=== PATIENT | female | born 1985 | race Caucasian/White ===

== ENCOUNTER 2016-09-20 13:36 | Emergency (ER) | payer OTHER ==
[~2016-09-20] VITALS: Ht 165.1 cm; Wt 90.7 kg
[~2016-09-20 13:36] MED LIST: ALBUTEROL2.5 MG/0.5; AMOXICILLIN500 M2 PO; MEDROL DOSEPAK4 MG PO; MOTRIN800 MG PO; NORCO 325 MG-51 TAB PO; PERCOCET 325 MG1 TA5 PO; SINGULAIR10 MG PO; SYMBICORT1 AE1 INH; XANAX0.5 MG PO; ZYRTEC10 MG PO
[2016-09-20] MEDS ORDERED: VALTREX1 GM PO (13:47)
[2016-09-20] MEDS ORDERED: HYDROCODONE BIT1 T11 PO (13:47)
[2016-09-20] MEDS ORDERED: PREDNISONE10 MG PO (13:47)
== END 2016-09-20 13:54 | disposition home or self-care (01) ==
LOC: ED 13:36
DX: B02.9 Zoster without complications (principal); R03.0 Elevated blood-pressure reading, without diagnosis of hypertension; Z98.890 Other specified postprocedural states; Z79.899 Other long term (current) drug therapy; Z88.6 Allergy status to analgesic agent

== ENCOUNTER 2018-07-02 05:31 | Emergency (ER) | payer OTHER ==
[~2018-07-02] VITALS: Ht 165.1 cm; Wt 86.2 kg
[~2018-07-02 05:31] MED LIST changes: +HYDROCODONE BIT1 T11 PO; +PREDNISONE10 MG PO; +VALTREX1 GM PO
[2018-07-02] MEDS ORDERED: ZOLOFT50 MG PO (05:44)
[2018-07-02] MEDS ORDERED: ZYRTEC10 MG PO (05:45)
[2018-07-02] MEDS ORDERED: SYNTHROID,LEV112 MCG PO (05:45)
[2018-07-02] MEDS ORDERED: ATENOLOL25 MG PO (05:45)
[2018-07-02] MEDS ORDERED: VITAMIN D-32000 UNI1 PO (05:46)
[2018-07-02] MEDS ORDERED: LIOTHYRONINE SO5 MCG PO (05:46)
[2018-07-02 06:32] LABS: BASO % 0.2 % (0.0-1.0); EOS % 0.6 % (1.0-4.0); HEMATOCRIT 37.3 % (37.0-47.0); LYMPH # 0.6 10*3/uL (1.3-4.4); LYMPH % 9.3 % (27.0-41.0); MEAN CELL VOLUME 87.1 fl (81.0-99.0); MEAN CORPUSCULAR HGB 30.4 pg (27.0-31.0); MEAN CORPUSCULAR HGB CONC 34.9 g/dl (33.0-37.0); MEAN PLATELET VOLUME 10.3 fl (9.6-12.3); MONO # 0.4 10*3/uL (0.1-1.0); MONO % 6.3 % (3.0-9.0); NEUT # 5.5 10*3/uL (2.3-7.9); NEUT % 83.1 % (47.0-73.0); PLATELET COUNT AUTOMATED 216 10*3/uL (130-400); RED BLOOD COUNT 4.28 10*6/uL (4.10-5.10); RED CELL DISTRI WIDTH 12.2 % (0-14.5); WHITE BLOOD COUNT 6.6 10*3/uL (4.8-10.8)
[2018-07-02 06:46] LABS: BUN 10 mg/dl (7-24); CHLORIDE 103 mmol/L (98-107); CREATININE 0.76 mg/dL (0.55-1.02); POTASSIUM 3.3 mmol/L (3.5-5.1); SODIUM 134 mmol/L (136-145)
[2018-07-02] MEDS ORDERED: ONDANSETRON4 MG SL (06:58)
== END 2018-07-02 07:01 | disposition home or self-care (01) ==
LOC: ED 05:31
PROVIDERS: Emergency Medicine
DX: K52.9 Noninfective gastroenteritis and colitis, unspecified (principal); Z88.8 Allergy status to other drugs, medicaments and biological substances; Z79.899 Other long term (current) drug therapy

== ENCOUNTER 2019-08-27 21:56 | Emergency (ER) | payer OTHER ==
[~2019-08-27] VITALS: Ht 165.1 cm; Wt 88.5 kg
[~2019-08-27 21:56] MED LIST changes: +ATENOLOL25 MG PO; +LIOTHYRONINE SO5 MCG PO; +ONDANSETRON4 MG SL; +SYNTHROID,LEV112 MCG PO; +VITAMIN D-32000 UNI1 PO; +ZOLOFT50 MG PO
== END 2019-08-28 00:10 | disposition home or self-care (01) ==
LOC: ED 21:56
DX: M54.16 Radiculopathy, lumbar region (principal); Z79.899 Other long term (current) drug therapy; Z79.2 Long term (current) use of antibiotics